=== PATIENT | male | born 1985 | race Caucasian/White ===

== ENCOUNTER → 2016-10-01 | Outpatient (CLI) | payer OTHER ==
[~2016-10-01] MED LIST: ASPI-515 PO; DILT120T3 PO; OMNIPAQUE 350 MG/ML, 150 ML BOTTLE ONE
== END | disposition home or self-care (01) ==
LOC: CFH 12:10
PROVIDERS: ATTEND Internal Medicine Cardiovascular Disease
DX: I48.91 Unspecified atrial fibrillation (principal)
CPT/HCPCS: 71020; 75572; Q9967

== ENCOUNTER 2016-10-04 06:47 | Inpatient (IN) | payer OTHER ==
[2016-10-01 14:34] LABS: BLOOD UREA NITROGEN 13 mg/dL (7-18)
[2016-10-01 14:40] LABS: ASPARTATE AMINO TRANSFERASE 17 U/L (15-37)
[~2016-10-04] VITALS: Ht 177.8 cm; Wt 120.5 kg
[~2016-10-04 06:47] MED LIST changes: -OMNIPAQUE 350 MG/ML, 150 ML BOTTLE ONE
[2016-10-04 07:06] VITALS: BP 164/98
[2016-10-04] MEDS ORDERED: ROCURONIUM 10 MG/ML ONE (07:50)
[2016-10-04] MEDS ORDERED: NEOSTIGMINE 1 MG/ML, 10ML ONE (07:50)
[2016-10-04] MEDS ORDERED: GLYCOPYRROLATE 0.2MG/1ML ONE (07:50)
[2016-10-04] MEDS ORDERED: ONDANSETRON 2MG/ML, 2ML ONE (07:50)
[2016-10-04] MEDS ORDERED: PHENYLEPHRINE 10 MG/ML ONE (07:50)
[2016-10-04] MEDS ORDERED: PROPOFOL 10 MG/ML, 20ML ONE (07:50)
[2016-10-04] MEDS ORDERED: ISOPROTERENOL 0.2MG/ML, 5ML ONE (08:16)
[2016-10-04] MEDS ORDERED: HEPARIN 1,000 UNITS/ML, 10ML ONE (08:17)
[2016-10-04] MEDS ORDERED: ADENOSINE 6 MG/2 ML ONE (08:17)
[2016-10-04] MEDS ORDERED: BUPIVACAINE 0.25% ONE (08:41)
[2016-10-04] MEDS ORDERED: PROTAMINE SULFATE 10 MG/ML, 5ML ONE (09:07)
[2016-10-04] MEDS: APIXABAN 5 MG TABLET PO SCH ×2 (11:00→20:36)
[2016-10-04] MEDS ORDERED: ZOLPIDEM 5MG TABLET PO PRN (11:00)
[2016-10-04] MEDS ORDERED: PROMETHAZINE 25 MG/ML, 1ML IV PRN (11:30)
[2016-10-04] MEDS ORDERED: ACETAMINOPHEN 325 MG TABLET PO PRN (11:30)
[2016-10-04] MEDS ORDERED: FENTANYL PF 100 MCG/2ML IV PRN (11:30)
[2016-10-04] MEDS ORDERED: METOCLOPRAMIDE 5 MG/ML, 2ML IV PRN (11:30)
[2016-10-04] MEDS ORDERED: hydrALAzine 20 MG/ML, 1ML IV PRN (11:30)
[2016-10-04] MEDS ORDERED: OXYcodone 5 MG/5 ML ORAL.SOL UDC PO PRN (11:30)
[2016-10-04] MEDS ORDERED: HYDROmorphone 1 MG/ML, 1ML IV PRN (11:30)
[2016-10-04] MEDS ORDERED: MIDAZOLAM 1 MG/ML, 2ML IV PRN (11:30)
[2016-10-04] MEDS ORDERED: LABETALOL 5MG/ML, 20ML IV PRN (11:30)
[2016-10-04] MEDS ORDERED: ONDANSETRON 2MG/ML, 2ML IVPush PRN (11:30)
[2016-10-04] MEDS ORDERED: MEPERIDINE/PF 25MG/0.5ML IVPush PRN (11:30)
[2016-10-04] MEDS ORDERED: ACETAMINOPHEN 650 MG/20.3 ML UDC ONE (11:40)
[2016-10-04] MEDS ORDERED: OXYcodone 5 MG/5 ML ORAL.SOL UDC ONE (11:40)
[2016-10-04] MEDS ORDERED: hydrALAzine 20 MG/ML, 1ML ONE (12:44)
[2016-10-04 13:30] VITALS: BP 148/92
[2016-10-04 20:00] VITALS: BP 138/96
[2016-10-05 02:18] VITALS: BP 142/95
[2016-10-05 06:50] VITALS: BP 152/89
[2016-10-05] MEDS: APIXABAN 5 MG TABLET PO SCH (08:04)
[2016-10-05] MEDS ORDERED: APIX5TAB PO (08:35)
== END 2016-10-05 12:25 | disposition home or self-care (01) | DRG 274 ==
LOC: CACL 06:47 → ORIP 10:53 → 5SO 13:52 → DCLOUNGE 10-05 12:15
PROVIDERS: ADMIT Internal Medicine Cardiovascular Disease; ATTEND Internal Medicine Cardiovascular Disease
PROC: 02K83ZZ Map Conduction Mechanism, Percutaneous Approach (ICD-10-PCS; 2016-10-04)
PROC: 4A023FZ Measurement of Cardiac Rhythm, Percutaneous Approach (ICD-10-PCS; 2016-10-04)
PROC: 4A0234Z Measurement of Cardiac Electrical Activity, Percutaneous Approach (ICD-10-PCS; 2016-10-04)
PROC: 02583ZZ Destruction of Conduction Mechanism, Percutaneous Approach (ICD-10-PCS; principal; 2016-10-04 08:00)
DX: I48.91 Unspecified atrial fibrillation (principal); D68.69 Other thrombophilia; R03.0 Elevated blood-pressure reading, without diagnosis of hypertension
CPT/HCPCS: 36415; 80053; 85025; 85347; 85610; 85730; 93005; 93306; 93312; 93321; 93325; 93613; 93656; 93662; C1731; C1732; C1766; C1893; C1894; J0153; J1644; J2250; J2405; J2704; J2710; J2720; J3010; J3490; C1730; C1759; C2630; J0360; J2370

== ENCOUNTER 2017-07-18 16:16 | Emergency (ER) | payer OTHER ==
[~2017-07-18] VITALS: Ht 177.8 cm; Wt 121.0 kg
[~2017-07-18 16:16] MED LIST changes: +APIX5TAB PO
[2017-07-18] MEDS ORDERED: SODIUM CHLORIDE 0.9% 1,000ML IVBOLUS ONE (16:30)
[2017-07-18] MEDS ORDERED: SODIUM CHLORIDE FLUSH 10ML SYR IVF ONE (16:30)
[2017-07-18 16:47] VITALS: BP 136/88
[2017-07-18 16:49] LABS: BASOPHILS # (AUTO) 0.05 x10^3/uL (0-0.1); BASOPHILS % (AUTO) 1 % (0-1); EOSINOPHILS # (AUTO) 0.27 x10^3/uL (0-0.4); EOSINOPHILS % (AUTO) 3 % (1-7); LYMPHOCYTES # (AUTO) 3.86 x10^3/uL (1-3.4); LYMPHOCYTES % (AUTO) 40 % (22-44); MD NO; MEAN CORPUSCULAR HEMOGLOBIN 30.7 pg (27.5-34.5); MEAN CORPUSCULAR HGB CONC 34.9 g/dL (33.2-36.2); MEAN CORPUSCULAR VOLUME 88.1 fL (81-97); MEAN PLATELET VOLUME 7.2 fL (7.4-10.4); MONOCYTES % (AUTO) 6 % (2-9); NEUTROPHILS # (AUTO) 4.93 x10^3/uL (1.8-6.8); NEUTROPHILS % (AUTO) 51 % (42-75); PLATELET COUNT 347 x10^3/uL (130-400); RED BLOOD COUNT 5.08 x10^6/uL (4.38-5.82); RED CELL DISTRIBUTION WIDTH 12.9 % (9.4-14.8)
[2017-07-18] MEDS ORDERED: DILTIAZEM 240 MG CAP.ER.24H PO ONE (16:49)
[2017-07-18 16:56] LABS: ALANINE AMINOTRANSFERASE 74 U/L (12-78); ALBUMIN 4.3 g/dL (3.4-5.0); ANION GAP 10 mmol/L (5-15); CALCIUM 8.7 mg/dL (8.5-10.1); CHLORIDE 110 mmol/L (98-107)
[2017-07-18 17:06] LABS: ALKALINE PHOSPHATASE 76 U/L (45-117); BILIRUBIN,TOTAL 1.3 mg/dL (0.2-1.0); CREATININE 1.07 mg/dL (0.7-1.3); FREE T4 (FREE THYROXINE) 1.06 ng/dL (0.76-1.46); TOTAL PROTEIN 7.8 g/dL (6.4-8.2)
[2017-07-18] MEDS ORDERED: APIXABAN 5 MG TABLET PO STA (18:28)
== END 2017-07-18 19:11 | disposition home or self-care (01) ==
LOC: ED 18:38
DX: I48.92 Unspecified atrial flutter (principal); I48.91 Unspecified atrial fibrillation
CPT/HCPCS: 36415; 71046; 80053; 84439; 84443; 85025; 93005; 99285

== ENCOUNTER 2017-08-29 15:30 | Day surgery (SDC) | payer OTHER ==
[~2017-08-29] VITALS: Ht 177.8 cm; Wt 115.9 kg
[2017-08-29] MEDS ORDERED: RIVAROXABAN 20 MG TABLET ONE (15:31)
[2017-08-29] MEDS ORDERED: ASPI-650 PO (15:55)
[2017-08-29 15:56] VITALS: BP 128/95
[2017-08-29] MEDS ORDERED: SODIUM CHLORIDE 0.9% 1,000 ML IV SCH (16:00)
[2017-08-29] MEDS ORDERED: RIVAROXABAN 20 MG TABLET PO SCH (16:00)
[2017-08-29 16:19] LABS: BASOPHILS # (AUTO) 0.04 x10^3/uL (0-0.1); BASOPHILS % (AUTO) 0 % (0-1); EOSINOPHILS # (AUTO) 0.27 x10^3/uL (0-0.4); EOSINOPHILS % (AUTO) 3 % (1-7); LYMPHOCYTES # (AUTO) 3.39 x10^3/uL (1-3.4); LYMPHOCYTES % (AUTO) 34 % (22-44); MD NO; MEAN CORPUSCULAR HEMOGLOBIN 30.7 pg (27.5-34.5); MEAN CORPUSCULAR HGB CONC 34.9 g/dL (33.2-36.2); MEAN PLATELET VOLUME 7.3 fL (7.4-10.4); MONOCYTES # (AUTO) 0.57 x10^3/uL (0.2-0.8); MONOCYTES % (AUTO) 6 % (2-9); NEUTROPHILS % (AUTO) 58 % (42-75); PLATELET COUNT 320 x10^3/uL (130-400); RED BLOOD COUNT 5.25 x10^6/uL (4.38-5.82); RED CELL DISTRIBUTION WIDTH 13.2 % (9.4-14.8)
[2017-08-29 16:27] LABS: ALBUMIN 4.3 g/dL (3.4-5.0); ANION GAP 8 mmol/L (5-15); CALCIUM 8.6 mg/dL (8.5-10.1); CHLORIDE 110 mmol/L (98-107)
[2017-08-29 16:31] LABS: ALANINE AMINOTRANSFERASE 49 U/L (12-78); ALKALINE PHOSPHATASE 78 U/L (45-117); BILIRUBIN,TOTAL 1.6 mg/dL (0.2-1.0); TOTAL PROTEIN 8.2 g/dL (6.4-8.2)
[2017-08-29] MEDS ORDERED: FLEC100T PO (16:42)
[2017-08-29] MEDS ORDERED: RIVA20TA PO (16:42)
[2017-08-29] MEDS ORDERED: APIX5TAB PO (16:44)
[2017-08-29] MEDS ORDERED: RIVAROXABAN 20 MG TABLET PO ONE (17:30)
== END 2017-08-29 17:15 ==
LOC: CACL 15:30
PROVIDERS: ATTEND Internal Medicine Cardiovascular Disease
DX: I48.91 Unspecified atrial fibrillation (principal); Z79.82 Long term (current) use of aspirin; Z88.8 Allergy status to other drugs, medicaments and biological substances
CPT/HCPCS: 36415; 80053; 85025; 92960; 93312; 93321; 93325

== ENCOUNTER 2017-09-26 20:37 | Inpatient (IN) | payer OTHER ==
[~2017-09-26] VITALS: Ht 177.8 cm; Wt 121.4 kg
[~2017-09-26 20:37] MED LIST changes: +ASPI-650 PO; +FLEC100T PO; +RIVA20TA PO
[2017-09-26 21:43] LABS: BASOPHILS # (AUTO) 0.12 x10^3/uL (0-0.1); BASOPHILS % (AUTO) 1 % (0-1); EOSINOPHILS # (AUTO) 0.31 x10^3/uL (0-0.4); EOSINOPHILS % (AUTO) 3 % (1-7); LYMPHOCYTES # (AUTO) 3.64 x10^3/uL (1-3.4); LYMPHOCYTES % (AUTO) 36 % (22-44); MD NO; MEAN CORPUSCULAR HEMOGLOBIN 30.2 pg (27.5-34.5); MEAN CORPUSCULAR HGB CONC 34.6 g/dL (33.2-36.2); MEAN CORPUSCULAR VOLUME 87.3 fL (81-97); MEAN PLATELET VOLUME 7.3 fL (7.4-10.4); MONOCYTES # (AUTO) 0.53 x10^3/uL (0.2-0.8); MONOCYTES % (AUTO) 5 % (2-9); NEUTROPHILS # (AUTO) 5.65 x10^3/uL (1.8-6.8); NEUTROPHILS % (AUTO) 55 % (42-75); PLATELET COUNT 293 x10^3/uL (130-400); RED BLOOD COUNT 5.05 x10^6/uL (4.38-5.82); RED CELL DISTRIBUTION WIDTH 13.3 % (9.4-14.8)
[2017-09-26 21:57] LABS: ANION GAP 9 mmol/L (5-15); CALCIUM 8.9 mg/dL (8.5-10.1); CHLORIDE 109 mmol/L (98-107)
[2017-09-26 22:00] LABS: TROPONIN I < 0.015 ng/mL (0.000-0.045)
[2017-09-26 22:43] VITALS: BP 139/99
[2017-09-27 01:39] VITALS: BP 131/84
[2017-09-27 06:48] VITALS: BP 134/84
[2017-09-27] MEDS ORDERED: PROTAMINE SULFATE 10 MG/ML, 5ML ONE (13:10)
[2017-09-27] MEDS ORDERED: PROPOFOL 10 MG/ML, 20ML ONE (13:10)
[2017-09-27] MEDS ORDERED: HEPARIN 1,000 UNITS/ML, 10ML ONE (13:10)
[2017-09-27] MEDS ORDERED: SUCCINYLCHOLINE 20 MG/ML, 10ML ONE (13:10)
[2017-09-27] MEDS ORDERED: ROCURONIUM 10 MG/ML,10ML ONE (13:10)
[2017-09-27] MEDS ORDERED: DEXAMETHASONE 4 MG/ML, 5ML ONE (13:10)
[2017-09-27] MEDS ORDERED: FENTANYL PF 250 MCG/5ML ONE (13:10)
[2017-09-27] MEDS ORDERED: FENTANYL PF 100 MCG/2ML ONE (13:10)
[2017-09-27] MEDS ORDERED: MIDAZOLAM 1 MG/ML, 2ML ONE (13:10)
[2017-09-27] MEDS ORDERED: ACETAMINOPHEN 325 MG TABLET ONE (18:17)
[2017-09-27] MEDS ORDERED: ACETAMINOPHEN 325 MG TABLET PO PRN (18:30)
[2017-09-27 20:18] VITALS: BP 128/87
[2017-09-27] MEDS ORDERED: ZOLPIDEM 5MG TABLET PO SCH (21:00)
[2017-09-27] MEDS: APIXABAN 5 MG TABLET PO SCH (21:42)
[2017-09-28 03:00] VITALS: BP 131/77
[2017-09-28 08:17] VITALS: BP 138/92
[2017-09-28] MEDS: APIXABAN 5 MG TABLET PO SCH (08:18)
[2017-09-28] MEDS ORDERED: METO25TA4 PO (09:43)
[2017-09-28] MEDS ORDERED: FLEC100T PO (11:11)
== END 2017-09-28 12:46 | disposition home or self-care (01) | DRG 274 ==
LOC: ED 21:54 → EDIP 22:00 → 5SO 22:30
PROVIDERS: ADMIT Internal Medicine Cardiovascular Disease; ATTEND Internal Medicine Cardiovascular Disease
PROC: 4A023FZ Measurement of Cardiac Rhythm, Percutaneous Approach (ICD-10-PCS; 2017-09-27)
PROC: 4A0234Z Measurement of Cardiac Electrical Activity, Percutaneous Approach (ICD-10-PCS; 2017-09-27)
PROC: 02583ZZ Destruction of Conduction Mechanism, Percutaneous Approach (ICD-10-PCS; principal; 2017-09-27 13:00)
DX: I48.92 Unspecified atrial flutter (principal); Z79.01 Long term (current) use of anticoagulants; I48.91 Unspecified atrial fibrillation
CPT/HCPCS: 36415; 80048; 82040; 83735; 84484; 85025; 85347; 93005; 93308; 93312; 93321; 93325; 93613; 93655; 93656; 93662; 99285; C1731; C1732; C1766; C1893; C1894; J1100; J1644; J2250; J2704; J2720; J3010; C1730; C1759; J0330

== ENCOUNTER → 2020-09-08 | Outpatient (CLI) | payer OTHER ==
[~2020-09-08] MED LIST changes: -ASPI-515 PO; -ASPI-650 PO; +ASPI-963 PO; +ASPI325T20 PO; +METO25TA4 PO
[2020-09-08 08:41] LABS: BASOPHILS % (AUTO) 1 % (0-1); EOSINOPHILS % (AUTO) 2 % (1-7); LYMPHOCYTES % (AUTO) 34 % (22-44); MEAN CORPUSCULAR HEMOGLOBIN 30.4 pg (27.5-34.5); MEAN PLATELET VOLUME 7.3 fL (7.4-10.4); MONOCYTES % (AUTO) 6 % (2-9); NEUTROPHILS % (AUTO) 58 % (42-75); PLATELET COUNT 267 x10^3/uL (130-400); RED BLOOD COUNT 5.57 x10^6/uL (4.38-5.82); RED CELL DISTRIBUTION WIDTH 13.1 % (9.4-14.8)
[2020-09-08 08:42] LABS: HCT (SEDRATE) 48.3 % (39.2-51.8); MD NO
[2020-09-08 08:52] LABS: ALBUMIN 4.7 g/dL (3.4-5.0); ANION GAP 8 mmol/L (5-15); CALCIUM 9.1 mg/dL (8.5-10.1); CHLORIDE 107 mmol/L (98-107)
[2020-09-08 08:54] LABS: MICROSCOPIC NOT IND
[2020-09-08 09:17] LABS: ALANINE AMINOTRANSFERASE 53 U/L (12-78); ALKALINE PHOSPHATASE 86 U/L (45-117); BILIRUBIN,TOTAL 1.9 mg/dL (0.2-1.0); CREATININE 0.98 mg/dL (0.7-1.3); FREE T4 (FREE THYROXINE) 1.12 ng/dL (0.76-1.46); TOTAL PROTEIN 8.1 g/dL (6.4-8.2)
[2020-09-08 09:21] LABS: FOLATE LEVEL > 20.0 ng/mL (3.1-17.5)
== END | disposition home or self-care (01) ==
LOC: LAB 08:17
PROVIDERS: ATTEND Nurse Practitioner Primary Care
DX: Z13.220 Encounter for screening for lipoid disorders (principal); E55.9 Vitamin D deficiency, unspecified; I48.91 Unspecified atrial fibrillation; I10 Essential (primary) hypertension; R79.9 Abnormal finding of blood chemistry, unspecified; Z79.899 Other long term (current) drug therapy
CPT/HCPCS: 36415; 80053; 80061; 80074; 81003; 82043; 82306; 82607; 82652; 82746; 83036; 84153; 84207; 84425; 84439; 84443; 84481; 85025; 85651; 86140; G0103

== ENCOUNTER → 2020-09-27 | Outpatient (CLI) | payer OTHER ==
[~2020-09-27] MED LIST changes: +OMNIPAQUE 350 MG/ML, 100ML BOTTLE ONE
== END | disposition home or self-care (01) ==
LOC: CFH 08:11
PROVIDERS: ATTEND Nurse Practitioner Primary Care
DX: K76.0 Fatty (change of) liver, not elsewhere classified (principal); N20.0 Calculus of kidney; I10 Essential (primary) hypertension; R16.0 Hepatomegaly, not elsewhere classified
CPT/HCPCS: 74177; Q9967

== ENCOUNTER → 2020-10-28 | Outpatient (CLI) | payer OTHER ==
[~2020-10-28] MED LIST changes: -OMNIPAQUE 350 MG/ML, 100ML BOTTLE ONE
[2020-10-28 09:44] LABS: ALBUMIN 4.1 g/dL (3.4-5.0); BILIRUBIN, DIRECT 0.2 mg/dL (0.1-0.2)
[2020-10-28 09:46] LABS: BILIRUBIN,TOTAL 1.4 mg/dL (0.2-1.0); TOTAL PROTEIN 7.7 g/dL (6.4-8.2)
[2020-10-28 10:49] LABS: BILIRUBIN,INDIRECT 1.2 mg/dL (0.0-2.0)
== END | disposition home or self-care (01) ==
LOC: LAB 09:03
PROVIDERS: ATTEND Nurse Practitioner Primary Care
DX: R79.9 Abnormal finding of blood chemistry, unspecified (principal); Z79.899 Other long term (current) drug therapy
CPT/HCPCS: 36415; 80076; 82105; 82390; 82977; 83516; 83615; 86644; 86645; 86664; 86665; 86747

== ENCOUNTER → 2020-12-15 | Outpatient (CLI) | payer OTHER ==
[2020-12-15 16:33] LABS: ANA SCREEN NEGATIVE (Negative)
== END | disposition home or self-care (01) ==
LOC: LAB 08:53
PROVIDERS: ATTEND Internal Medicine
DX: R74.8 Abnormal levels of other serum enzymes (principal)
CPT/HCPCS: 36415; 82103; 82390; 82728; 82784; 83516; 83540; 83550; 84466; 86038